=== PATIENT | male | born 1935 | race Caucasian/White ===

== ENCOUNTER 2016-08-26 10:10 | Inpatient (IN) | payer MEDICARE ==
[~2016-08-26] VITALS: Ht 165.1 cm; Wt 74.4 kg
[~2016-08-26 10:10] MED LIST changes: +DICL100G18 TP; -DICL100G7 TP
[2016-09-16] VITALS (10 sets, daily range): BP systolic 114–149; BP diastolic 59–77
[2016-09-16] MEDS ORDERED: TRANEXAMIC ACID 1,000 MG in IV NS 50ML -- 1ST BAG INJ ONE (06:00)
[2016-09-16] MEDS ORDERED: MORPHINE SULFATE 5 MG, KETOROLAC TROMETHAMINE 30 MG, ROPIVacaine 0.5% PF 60 ML, EPINEPH... INT ART ONE ×5 (06:00)
[2016-09-16] MEDS ORDERED: ACETAMINOPHEN 500 MG TABLET PO PRN (06:00)
[2016-09-16] MEDS ORDERED: MELOXICAM 7.5 MG TABLET PO PRN (06:00)
[2016-09-16] MEDS ORDERED: fentaNYL PF VIAL 100 MCG/2 ML VIAL IV PRN ×3 (07:00→08:30)
[2016-09-16] MEDS ORDERED: HYDROmorphone 2 MG/ML VIAL IV PRN (07:00)
[2016-09-16] MEDS ORDERED: LIDOCAINE 1% 1 ML SYRINGE. ID PRN (07:00)
[2016-09-16] MEDS ORDERED: IV RINGERS,LACTATED 1000ML 1,000 ML IV SCH (07:00)
[2016-09-16] MEDS ORDERED: PROCHLORPERAZINE 10 MG/2 ML VIAL. IV PRN ×2 (07:00→08:30)
[2016-09-16] MEDS ORDERED: ONDANSETRON PF 4 MG/2 ML VIAL. IV PRN (07:00)
[2016-09-16] MEDS ORDERED: TRANEXAMIC ACID 1,000 MG in IV NS 50ML -- 2ND BAG INJ ONE (08:00)
[2016-09-16] MEDS: IV DEXTROSE 5 %-0.45 % NACL 1,000 ML IV SCH ×3 (08:18→20:47)
--- NOTE | 2016-09-16 08:21 | PDOC ---
BRIEF OPERATIVE NOTE Date: Sep 16, 2016 Pre-Op Diagnosis R knee DJD Post-Op Diagnosis same Procedure Performed R TKA Surgeon Sheldon Singer Anesthesia Type: General, Local Blood Loss see op report Complications none JOI DAVIS II, MD Sep 16, 2016 08:21
[2016-09-16] MEDS ORDERED: CALCIUM CARBONATE 500 MG TAB.CHEW PO PRN (08:30)
[2016-09-16] MEDS ORDERED: PROCHLORPERAZINE 5 MG TABLET. PO PRN (08:30)
[2016-09-16] MEDS ORDERED: METOCLOPRAMIDE HCL 10 MG/2 ML VIAL. IV PRN (08:30)
[2016-09-16] MEDS ORDERED: DEXTROSE 50% 25 GM / 50ML DISP.SYRIN. IV PRN (08:30)
[2016-09-16] MEDS ORDERED: MORPHINE SULFATE 4 MG/ML DISP.SYRIN. IV PRN ×2 (08:30)
[2016-09-16] MEDS ORDERED: MORPHINE SULFATE 10 MG/ML VIAL. IV PRN (08:30)
[2016-09-16] MEDS ORDERED: 0.9 % SODIUM CHLORIDE 10 ML DISP.SYRIN. IV PRN (08:30)
[2016-09-16] MEDS ORDERED: HYDROcodone/APAP 7.5/325MG 1 TAB TABLET PO PRN (08:30)
[2016-09-16] MEDS ORDERED: HYDROcodone/APAP 10/325 1 TAB TABLET PO PRN (08:30)
[2016-09-16] MEDS ORDERED: diphenhydrAMINE 50 MG/ML VIAL IV PRN (08:30)
[2016-09-16] MEDS ORDERED: ZOLPIDEM 5 MG TABLET. PO PRN (08:30)
[2016-09-16] MEDS ORDERED: traMADol 50 MG TABLET PO PRN ×2 (08:30)
[2016-09-16] MEDS ORDERED: oxyCODONE/APAP 5/325 1 TAB TABLET PO PRN (08:30)
[2016-09-16] MEDS ORDERED: MORPHINE SULFATE 2 MG/ML DISP.SYRIN. IV PRN (08:30)
[2016-09-16] MEDS ORDERED: PROPOFOL 20 ML IV ONE (08:42)
[2016-09-16] MEDS ORDERED: DEXAMETHASONE SOD PHOS 20 MG/5 ML VIAL. ONE (08:42)
[2016-09-16] MEDS ORDERED: LIDOCAINE 2% PF Vial for OR 5 ML VIAL. ONE (08:42)
[2016-09-16] MEDS ORDERED: ONDANSETRON PF 4 MG/2 ML VIAL. ONE (08:42)
[2016-09-16] MEDS ORDERED: fentaNYL PF VIAL 100 MCG/2 ML VIAL ONE ×2 (08:43→10:37)
[2016-09-16 09:14] LABS: INR 1.1 (0.8-1.1); PROTHROMBIN TIME PATIENT 13.9 SEC (11.7-14.0)
[2016-09-16] MEDS ORDERED: ePHEDrine PF IN SALINE 50 MG/5 ML DISP.SYRIN IV ONE (10:17)
[2016-09-16] MEDS ORDERED: SEVOFLURANE 61 TO 120 MINUTES. IH ONE (11:07)
[2016-09-16] MEDS ORDERED: MORPHINE SULFATE 10 MG/ML VIAL. ONE (11:09)
[2016-09-16] MEDS: MORPHINE SULFATE 2 MG/ML DISP.SYRIN. IV PRN ×2 (12:40→13:07)
[2016-09-16] MEDS: fentaNYL PF VIAL 100 MCG/2 ML VIAL IV PRN ×2 (12:44→12:55)
[2016-09-16] MEDS ORDERED: MEPERIDINE PF 25 MG/ML VIAL. IV PRN (13:00)
--- NOTE | 2016-09-16 13:14 | RAD ---
AP and lateral right knee radiographs 09/16/2016 Clinical history: Post right knee replacement. AP and crosstable lateral digital radiographs of the right knee were obtained. The patient is status post right TKA. The prosthetic components are intact. A surgical drain is noted in place. No fracture or dislocation is seen. Impression: Status post right TKA. No acute osseous abnormality is seen.
--- NOTE | 2016-09-16 15:10 | OP ---
DATE OF SURGERY: 09/16/2016 SURGEON: Kervin Davis MD TALENT SPECIALIST: Raisa Singer. ANESTHESIA: General plus local anesthetic. PREOPERATIVE DIAGNOSIS: Advanced right knee degenerative joint disease. POSTOPERATIVE DIAGNOSIS: Advanced right knee degenerative joint disease. PROCEDURE PERFORMED: Right total knee arthroplasty. COMPONENTS INSERTED: 1. Waller and Nephew cobalt chrome size 5 femur. 2. Size 3 tibial baseplate. 3. An 11 mm thick polyethylene articular insert. 4. A 23-mm biconvex patella. ESTIMATED BLOOD LOSS: 75 mL. TOURNIQUET TIME: 56 minutes. COMPLICATIONS: None. REASON FOR PROCEDURE: The patient is a very pleasant 80-year-old gentleman who has had severe and progressive right knee pain that was interfering with his activities of daily living and has been refractory to anti-inflammatories rehabilitation program in the past and intra-articular injections. Because of failure of conservative therapies, we had discussion of risks, benefits, alternatives to the above surgery and he elected to proceed. DESCRIPTION OF PROCEDURE: The patient was greeted in the preoperative area by myself. Correct extremity was marked and verified. He was taken to the operative suite and antibiotics were started en route. Once in the OR, he was transferred gently supine to the OR table and had successful induction of general anesthesia. We then secured in bed and all pressure points were padded. We then taped a nonsterile tourniquet in place to his right thigh and placed a padded bolster at his hip and his leg attachment for Fabian leg positioning device and secured down to the bed. Now, we then proceeded to prep and drape right lower extremity in usual sterile fashion and conducted a standard preoperative timeout. After this, we exsanguinated the extremity with an Esmarch and insufflated the tourniquet to 250 mmHg. I then wilbur a line from a skin incision, incised the skin with anterior midline skin incision, dissected subcutaneous tissue with electrocautery to identify the extensor mechanism. I then made my standard medial parapatellar arthrotomy and then performed a medial release with combination of Cortes and electrocautery to pass the mid coronal plane. I then bluntly dissected the fat pad off of the posterior aspect of the tendon and excised this. The knee was then flexed and excised the cruciate ligaments. After this, I secured my Visionaire cutting block and placed over his distal femur and made my distal femoral cut. I then removed the Visionaire cutting block and secured my 5-in-[address], the threaded pins and then made those cuts and delivered the bony remnants from the operative field with the assistance of a curved osteotome. I palpated along the posterior aspects of his femoral condyles and ensured there were no osteophytes that remained and they were not. After this, I then directed my attention to my proximal tibia and repositioned my retractors to protect collateral ligaments as well as placed the popliteal retractor. I then used an extramedullary tibial cutting guide and secured in place after setting position. I then made my proximal tibial cut and delivered all bony pieces from the operative field with circumferential electrocautery. I then brought the leg into extension and checked my alignment with a spacer block and drop long and was happy. I then repositioned my retractors and reflexed the knee into position and placed a size 3 trial tibial baseplate which gave a good fit and set the rotation of the medial third tibial tubercle and then pinned into place followed by drilling and punching for pins. After this, I directed my attention back to the femur and placed my trial femoral component in place followed by the box cutting guide and reamed and punched for my notch. I then removed this guide and placed my trial again and then trialled polyethylene. I started with a 9 and 10, but these were too narrow and led to recurvatum and instability. Therefore, with the 11 in place, he had full range of motion, 0-140 degrees. His knee was stable to varus and valgus in extension and mid flexion. I then directed my attention back to patella, incised and reamed for a 23 biconvex patella and trialed the patellar button in place and he had excellent tracking. After this, I removed all trial components and thoroughly irrigated all bony surfaces and then proceeded to cement in place my tibia, taking care to remove excess cement around the periphery as well as my femur. After these, I placed trial polyethylene articular insert back in place and the cement was allowed to polymerize with the leg in extension. I then held patellar button in place after applying cement to its backside with the clamp. After along the cement was polymerized, I then testing range of motion and stability and was happy with the 11 and then removed the trial articular insert and then injected my periarticular mixture into the operative field rod-incisional area. I then thoroughly irrigated out the operative field. We then let the tourniquet down. There was a large bleeder at the lateral geniculate area which was cauterized. I then placed one-eight inch Hemovac exiting superolaterally from the knee. I then inserted minor polyethylene articular insert and secured in place which yielded excellent range of motion and stability. I then closed my arthrotomy with simple interrupted #1 Vicryl with the exception of [id number] proximally. I then tested the arthrotomy closure in flexion and noted no extravasation of blood. After this, we closed the subcutaneous tissue with inverted interrupted 2-0 in a multilayer fashion followed by running 4-0 Monocryl in subcuticular fashion for skin. Prior to completion of wound closure, all counts were reported correct x 2. No complications. Postop plan is to [facility] the [facility] and antibiotic prophylaxis as well as IV pain medicine and to begin his rehabilitation. No complications. At the conclusion of surgery, he was awakened from anesthesia and transferred supine to the recovery room cart taken to PACU in stable and extubated condition. KERVIN DAVIS MD DR: PATRICIA/allison JOB#: [id number] / [id number] SUKHJINDER
[2016-09-16] MEDS ORDERED: WARFARIN 6 MG TABLET. PO ONE (16:00)
[2016-09-16] MEDS: FERROUS SULFATE 325 MG TABLET. PO SCH (16:42)
[2016-09-16] MEDS: TERAZOSIN 5 MG CAPSULE. PO SCH (16:43)
[2016-09-16] MEDS: oxyCODONE/APAP 7.5/325 1 TAB TABLET PO PRN ×2 (16:47→23:03)
[2016-09-16] MEDS: CELECOXIB 200 MG CAPSULE. PO SCH (20:47)
[2016-09-16] MEDS: GABAPENTIN 300 MG CAPSULE. PO SCH (20:47)
[2016-09-17 03:43] VITALS: BP 113/72
[2016-09-17 04:53] LABS: HEMATOCRIT 32.6 % (39.0-53.0); HEMOGLOBIN 11.1 g/dL (13.0-17.5)
[2016-09-17 05:01] LABS: INR 1.3 (0.8-1.1); PROTHROMBIN TIME PATIENT 15.4 SEC (11.7-14.0)
[2016-09-17] MEDS ORDERED: MAGNESIUM HYDROXIDE 2,400 MG/30 ML ORAL.SUSP. PO PRN (06:00)
[2016-09-17 06:40] VITALS: BP 103/63
[2016-09-17] MEDS: oxyCODONE/APAP 7.5/325 1 TAB TABLET PO PRN ×3 (06:45→17:38)
[2016-09-17] MEDS: CELECOXIB 200 MG CAPSULE. PO SCH ×2 (07:55→21:33)
[2016-09-17] MEDS: FERROUS SULFATE 325 MG TABLET. PO SCH ×2 (07:56→17:31)
[2016-09-17] MEDS: GABAPENTIN 300 MG CAPSULE. PO SCH ×3 (07:58→21:33)
[2016-09-17] MEDS: SENNOSIDES/DOCUSATE 8.6/50MG TABLET. PO SCH (07:58)
[2016-09-17] MEDS: MULTIVITAMIN with MINERAL TABLET. PO SCH (07:59)
--- NOTE | 2016-09-17 08:05 | PDOC ---
ORTHO PROGRESS NOTES Subjective Pain tolerable, no CP, SOB, N/V. Vitals Vital Signs Date Time Temp Pulse Resp B/P (MAP) Pulse Ox O2 Delivery O2 Flow Rate FiO2 09/17/16 06:45 18 96 Room Air 09/17/16 06:40 97.9 72 103/63 (76) 97.9 09/16/16 16:30 2.0 Labs Laboratory Tests Test 09/16/16 08:45 09/17/16 03:45 Prothrombin Time 13.9 SEC (11.7-14.0) 15.4 SEC (11.7-14.0) Prothromb Time International Ratio 1.1 (0.8-1.1) 1.3 (0.8-1.1) Activated Partial Thromboplast Time 29 SEC (24-38) Hemoglobin 11.1 g/dL (13.0-17.5) Hematocrit 32.6 % (39.0-53.0) Mean Corpuscular Hemoglobin Concent 34 g/dL (31-37) Laboratory Tests Test 09/16/16 08:45 09/17/16 03:45 Prothrombin Time 13.9 SEC (11.7-14.0) 15.4 SEC (11.7-14.0) Prothromb Time International Ratio 1.1 (0.8-1.1) 1.3 (0.8-1.1) Activated Partial Thromboplast Time 29 SEC (24-38) Hemoglobin 11.1 g/dL (13.0-17.5) Hematocrit 32.6 % (39.0-53.0) Mean Corpuscular Hemoglobin Concent 34 g/dL (31-37) Notes A and A sitting in bed RLE: dressing with some bloody drainage normal sensation and motor distally toes warm Assessment and Plan cont pain regimen PT/OT dressing change and drain removal today JOI DAVIS II, MD Sep 17, 2016 08:05
--- NOTE | 2016-09-17 08:11 | ACF ---
Admission Forms Criteria PAIN MANAGEMENT [facility] Clinical Indications for Admission to Inpatient Care (Place 'X' for any and all applicable criteria): Hospital admission is needed for appropriate care of the patient because of 1 or more of the following are present (1)(2)(3)(4)(5): [ ]I. Severe pain requiring acute inpatient management as indicated by 1 or more of the following (2)(5)(10): [ ]a) Continuous or frequent (eg, every 2 to 4 hours) parenteral analgesics required [A] [ ]b) Necessity (ie, alternative approaches not effective) for analgesic regimen that can only be performed or initiated in inpatient setting [X]II. Pain causing debilitation to the point of inability to function or be supported at any other level of care [ ]III. Severe side effects from pain medications as indicated by ANY ONE of the following (12)(13)(14)(15): [ ]a) Uncontrollable seizures [ ]b) Cardiac arrhythmias of immediate concern [ ]c) Dehydration that is severe or persistent [ ]d) Vomiting that is severe or persistent [ ]e) Altered mental status that is severe or persistent [ ]f) Obstipation with inadequate GI function to maintain nutrition The original [employer] content created by [employer] has been revised. The portions of the content which have been revised are identified through the use of italic text or in bold, and [facility] [employer] has neither reviewed nor approved the modified material. All other unmodified content is copyright [employer]. Please see references footnoted in the original [employer] [facility] edition 2016 Admission Criteria Met?: Yes ALEXSANDRA VILLEGAS Sep 17, 2016 08:11 JOI DAVIS II, MD Sep 18, 2016 09:26
[2016-09-17 08:58] VITALS: BP 122/66
[2016-09-17] MEDS ORDERED: BISACODYL 10 MG SUPP.RECT. PR PRN (16:00)
[2016-09-17] MEDS ORDERED: WARFARIN 5 MG TABLET. PO ONE (16:00)
[2016-09-17 18:04] VITALS: BP 123/64
[2016-09-17] MEDS: TERAZOSIN 5 MG CAPSULE. PO SCH (21:34)
[2016-09-18] MEDS: oxyCODONE/APAP 7.5/325 1 TAB TABLET PO PRN ×6 (00:55→20:55)
[2016-09-18 06:01] LABS: HEMATOCRIT 29.9 % (39.0-53.0); HEMOGLOBIN 10.4 g/dL (13.0-17.5)
[2016-09-18 06:20] VITALS: BP 145/81
[2016-09-18 06:20] LABS: INR 1.7 (0.8-1.1); PROTHROMBIN TIME PATIENT 18.7 SEC (11.7-14.0)
[2016-09-18] MEDS: FERROUS SULFATE 325 MG TABLET. PO SCH ×2 (08:10→16:59)
[2016-09-18] MEDS: CELECOXIB 200 MG CAPSULE. PO SCH ×2 (08:10→20:55)
[2016-09-18] MEDS: MULTIVITAMIN with MINERAL TABLET. PO SCH (08:11)
[2016-09-18] MEDS: SENNOSIDES/DOCUSATE 8.6/50MG TABLET. PO SCH (08:11)
[2016-09-18] MEDS: GABAPENTIN 300 MG CAPSULE. PO SCH ×3 (08:11→20:55)
--- NOTE | 2016-09-18 08:36 | DISCH ---
DISCHARGE INSTRUCTIONS Condition on Discharge Condition on Discharge: Stable Activity After Discharge Activity Instructions for Disc: Other, see below Bathing Instructions: Shower-keep dressing dry Weight Bearing Status after Di: As tolerated Diet after Discharge Diet after Discharge: Regular Wound Incision Care Wound/Incision Care: Ice to area for comfort, Keep wound/cast CDI, Do not change dressing Contacting the DRColleen after DC Call your doctor for: Concerns you may have Follow-Up Follow up with: Sheldon or [facility] in 2wks Warfarin Follow-Up Warfarin Follow UP: per Pharmacy JOI DAVIS II, MD Sep 18, 2016 08:36
--- NOTE | 2016-09-18 08:38 | PDOC ---
ORTHO PROGRESS NOTES Subjective Pain last night, doing better this am. Progressing with therapy. No CP, SOB, N/ V. +flatus Vitals Vital Signs Date Time Temp Pulse Resp B/P (MAP) Pulse Ox O2 Delivery O2 Flow Rate FiO2 09/18/16 07:05 17 Room Air 09/18/16 06:20 98.0 70 145/81 (102) 96 98.0 Labs Laboratory Tests Test 09/16/16 08:45 09/17/16 03:45 09/18/16 05:40 Prothrombin Time 13.9 SEC (11.7-14.0) 15.4 SEC (11.7-14.0) 18.7 SEC (11.7-14.0) Prothromb Time International Ratio 1.1 (0.8-1.1) 1.3 (0.8-1.1) 1.7 (0.8-1.1) Activated Partial Thromboplast Time 29 SEC (24-38) Hemoglobin 11.1 g/dL (13.0-17.5) 10.4 g/dL (13.0-17.5) Hematocrit 32.6 % (39.0-53.0) 29.9 % (39.0-53.0) Mean Corpuscular Hemoglobin Concent 34 g/dL (31-37) 35 g/dL (31-37) Laboratory Tests Test 09/18/16 05:40 Hemoglobin 10.4 g/dL (13.0-17.5) Hematocrit 29.9 % (39.0-53.0) Mean Corpuscular Hemoglobin Concent 35 g/dL (31-37) Prothrombin Time 18.7 SEC (11.7-14.0) Prothromb Time International Ratio 1.7 (0.8-1.1) Notes A and A RLE remains NVI dressing in place, no drainage Assessment and Plan home tomorrow PT/OT as outpatient JOI DAVIS II, MD Sep 18, 2016 08:38
--- NOTE | 2016-09-18 15:20 | PATHOLOGY ---
PATHOLOGY REPORT * * * * * * * * FINAL DIAGNOSIS: Segments of bone and soft tissue, right total knee arthroplasty: - Advanced degenerative arthritis. (JPM:; d/t: 09/18/16) REPORT ELECTRONICALLY SIGNED BY: Agapito Sanford M.D. DATE/TIME: 09/18/2016 15:19 * * * * * * * * GROSS PATHOLOGY: Received in formalin labeled "Gabriel Carmona, right knee bone and tissue," are multiple segments of bone, including tibial plateau, measuring 10.5 x 8.1 x 3.8 cm in aggregate dimensions admixed with soft tissue; meniscus is present. The specimen shows focal eburnation of the articular surfaces. Manager Labor Delivery sections of bone and soft tissue are submitted in cassette A1, following decalcification. (KAH; 09/17/2016) INITIAL CPT CODE(S): A; 68115, 70082 Professional services performed [place] [facility] [place] [address] Technical services performed by [facility] at [address] [place] [address], [facility] [address] [address]. SPECIMEN(S) RECEIVED: A.Right knee bone and tissue CLINICAL HISTORY: Right knee DJD PATIENT: GABRIEL CARMONA /AGE: 9 1935 (Age: 80) PATIENT #: [id number] ALT CASE #: SPECIMEN COLLECTION DATE: 09/16/2016 SPECIMEN RECEIVED DATE: 09/16/2016 [facility] - [address] [place] [address] - PHONE: [phone] * * * END OF REPORT * * *
[2016-09-18] MEDS ORDERED: WARFARIN 4 MG TABLET. PO ONE (16:00)
[2016-09-18 18:00] VITALS: BP 124/70
[2016-09-18] MEDS: TERAZOSIN 5 MG CAPSULE. PO SCH (20:55)
[2016-09-19] MEDS: oxyCODONE/APAP 7.5/325 1 TAB TABLET PO PRN ×3 (03:20→11:14)
[2016-09-19 04:24] LABS: HEMATOCRIT 30.7 % (39.0-53.0); HEMOGLOBIN 10.5 g/dL (13.0-17.5)
[2016-09-19 04:32] LABS: INR 1.8 (0.8-1.1); PROTHROMBIN TIME PATIENT 19.6 SEC (11.7-14.0)
[2016-09-19 06:00] VITALS: BP 115/68
[2016-09-19] MEDS: FERROUS SULFATE 325 MG TABLET. PO SCH (08:03)
[2016-09-19] MEDS: MULTIVITAMIN with MINERAL TABLET. PO SCH (08:04)
[2016-09-19] MEDS: GABAPENTIN 300 MG CAPSULE. PO SCH ×2 (08:04→14:06)
[2016-09-19] MEDS: SENNOSIDES/DOCUSATE 8.6/50MG TABLET. PO SCH (08:04)
[2016-09-19] MEDS: CELECOXIB 200 MG CAPSULE. PO SCH (08:04)
--- NOTE | 2016-09-19 09:31 | PDOC ---
ORTHO PROGRESS NOTES Subjective He has a little more pain with physical therapy but otherwise feels like his pain is controlled. No new complaints. He feels like things are progressing well Vitals Vital Signs Date Time Temp Pulse Resp B/P (MAP) Pulse Ox O2 Delivery O2 Flow Rate FiO2 09/19/16 07:09 Room Air 09/19/16 06:18 20 09/19/16 06:00 98.1 74 115/68 (84) 98 98.1 Labs Laboratory Tests Test 09/18/16 05:40 09/19/16 02:55 Hemoglobin 10.4 g/dL (13.0-17.5) 10.5 g/dL (13.0-17.5) Hematocrit 29.9 % (39.0-53.0) 30.7 % (39.0-53.0) Mean Corpuscular Hemoglobin Concent 35 g/dL (31-37) 34 g/dL (31-37) Prothrombin Time 18.7 SEC (11.7-14.0) 19.6 SEC (11.7-14.0) Prothromb Time International Ratio 1.7 (0.8-1.1) 1.8 (0.8-1.1) Laboratory Tests Test 09/19/16 02:55 Hemoglobin 10.5 g/dL (13.0-17.5) Hematocrit 30.7 % (39.0-53.0) Mean Corpuscular Hemoglobin Concent 34 g/dL (31-37) Prothrombin Time 19.6 SEC (11.7-14.0) Prothromb Time International Ratio 1.8 (0.8-1.1) Notes He is awake and alert and sitting in bed. His dressing is intact and dry. He remains neurovascularly intact in the operative extremity. Assessment and Plan He will be discharged home today. He will have physical therapy closer to home. We will see him back in 2 weeks, sooner should a problem arise. Encouraged him to keep in touch with his primary care provider as well. JOI DAVIS II, MD Sep 19, 2016 09:31
[2016-09-19] MEDS ORDERED: WARFARIN 3 MG TABLET. PO ONE (11:30)
[2016-09-19 13:59] VITALS: BP 134/67
== END 2016-09-19 14:28 | disposition home or self-care (01) | DRG 470 ==
LOC: OPSVCIP 09-16 07:32 → 4 SOUTHEST 09-16 13:45
PROVIDERS: ADMIT Orthopaedic Surgery Sports Medicine; ATTEND Orthopaedic Surgery Sports Medicine
PROC: 0SRC0J9 Replacement of Right Knee Joint with Synthetic Substitute, Cemented, Open Approach (ICD-10-PCS; principal; 2016-09-17)
DX: M17.11 Unilateral primary osteoarthritis, right knee (principal); I10 Essential (primary) hypertension; E78.5 Hyperlipidemia, unspecified; K21.9 Gastro-esophageal reflux disease without esophagitis
CPT/HCPCS: 36415; 73560; 85014; 85018; 85610; 85730; 86850; 86900; 86901; 88305; 88311; C1713; J0171; J0690; J1100; J1170; J1885; J2175; J2270; J2405; J2704; J2795; J3010; J7030; J7120; 97110; 97116; 97150; 97530; 97535; C1769

== ENCOUNTER → 2016-08-26 | Outpatient (CLI) | payer MEDICARE ==
[~2016-08-26] MED LIST: ASPI-482 PO; CHOL10003 PO; DICL100G7 TP; GABA600T2 PO; LISI10TA2 PO; OXYC-323 PO; PANT40TA5 PO; SIMV20TA3 PO; TEMA15CA PO; TERA10CA3 PO
--- NOTE | 2016-08-26 13:13 | RAD ---
Right lower extremity bone length study, 08/26/2016: History: Knee pain, surgical planning AP views of the femur and right lower leg were obtained with radiopaque markers placed on the skin surface laterally to aid in measurements for surgical planning. There is mild degenerative change at the hip joint. There is considerable narrowing of the medial compartment of the knee joint with subchondral sclerosis, cyst formation and spurring. There is mild lateral subluxation of the tibia relative to the distal femur with a mild varus deformity at the knee. These limited views are otherwise unremarkable.
--- NOTE | 2016-08-26 14:42 | RAD ---
PROCEDURE MRI right knee without contrast dated 08/26/2016. HISTORY Knee pain. Waller and nephew protocol. TECHNIQUE After a 3 plane localizer, thin cut proton density sagittal imaging acquired along with a fat saturated T2 axial sequence. Waller and nephew protocol. COMPARISON None. FINDINGS Moderate tricompartmental hypertrophic change with prominent marginal osteophytes. Thinning and surface irregularity of the articular cartilage throughout. Broad zones of full-thickness cartilage loss over the weightbearing surface medial femoral condyle and medial tibial plateau. There is also small zone of full-thickness cartilage loss of the weightbearing surface lateral tibial plateau with full-thickness cartilage loss at the lateral patellar facet and lateral femoral trochlea. Moderate-sized joint effusion. Small popliteal cyst. No intra-articular loose body. Anterior cruciate ligament is not identified and likely chronically torn. The PCL is intact medial and lateral collateral complexes are grossly intact. Quadriceps and patellar tendon are intact. Blunted morphology and deficiency in size of posterior horn and body of medial meniscus. There is also blunted morphology of the posterior horn and anterior horn of lateral meniscus. IMPRESSION - Limited exam, intended for surgical localization purposes only. - Moderate tricompartmental degenerative arthrosis and chondromalacia. There is full-thickness cartilage loss in all 3 knee compartments. - Degenerative tearing of the medial and lateral meniscus as described above. - Small joint effusion and small popliteal cyst. - Nonvisualization of the anterior cruciate ligament, likely related to chronic tear. Recommend physical exam correlation. Electronically signed by: Everton Vickers (August 26, 2016 14:40:58)
== END | disposition home or self-care (01) ==
LOC: RAD 14:06
PROVIDERS: ATTEND Orthopaedic Surgery Sports Medicine
DX: M17.11 Unilateral primary osteoarthritis, right knee (principal)
CPT/HCPCS: 73721; 77073

== ENCOUNTER → 2016-08-26 | Outpatient (CLI) | payer MEDICARE ==
[2016-08-26 09:22] LABS: BILIRUBIN,URINE NEGATIVE (NEG); GLUCOSE,URINE NEGATIVE (NEG); NITRITE,URINE NEGATIVE (NEG); PH,URINE 5.5; PROTEIN,URINE NEGATIVE (NEG-TRACE); UROBILINOGEN,URINE 0.2 mg/dL (0.2 mg/dL)
[2016-08-26 09:41] LABS: INR 1.1 (0.8-1.1); PROTHROMBIN TIME PATIENT 13.7 SEC (11.7-14.0)
[2016-08-26 09:58] LABS: BACTERIA,URINE 0 /HPF (0-FEW); RBC,URINE 0 /HPF (0-2); SQUAMOUS EPITHELIAL CELL,UR OCC /LPF
--- NOTE | 2016-08-26 12:38 | EKG ---
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
--- NOTE | 2016-08-26 13:10 | RAD ---
Indication preop. Anticipated joint replacement. PA and lateral views of the chest were obtained. No prior imaging of the chest is available. The heart and pulmonary vessels are within normal limits. A focal infiltrate is not seen. Significant pleural fluid is not present and there is no pneumothorax. There are some mild degenerative changes in the lower thoracic spine. IMPRESSION: No acute or significant finding seen in the chest
== END | disposition home or self-care (01) ==
LOC: SURGPAT 14:06
PROVIDERS: ATTEND Orthopaedic Surgery Sports Medicine
DX: Z01.818 Encounter for other preprocedural examination (principal); I10 Essential (primary) hypertension
CPT/HCPCS: 36415; 71020; 81001; 85610; 85651; 85730; 87641; 93005